=== PATIENT | female | born 1965 | race Caucasian/White ===

== ENCOUNTER 2017-09-19 05:50 | Day surgery (SDC) | payer BC ==
[2017-09-19] MEDS ORDERED: MIDAZOLAM 1 MG/ML 2 ML INJ ×2 (07:54→07:55)
[2017-09-19] MEDS ORDERED: FENTAnyl 50 MCG/ML VIAL (07:54)
== END 2017-09-19 14:51 | disposition home or self-care (01) ==
LOC: GIL 05:50
DX: K21.9 Gastro-esophageal reflux disease without esophagitis (principal); K29.60 Other gastritis without bleeding
CPT/HCPCS: 43239; 88305